=== PATIENT | female | born 2000 | race Two or more races ===

== ENCOUNTER 2021-04-28 23:35 | Emergency (ER) | payer MEDICAID ==
[~2021-04-28] VITALS: Ht 165.1 cm; Wt 87.0 kg
[2021-04-28 23:39] VITALS: BP 134/72
[2021-04-29] MEDS ORDERED: VISCOUS LIDOCAINE 2% 15 ML UDC PO STA (00:37)
[2021-04-29] MEDS ORDERED: ONDANSETRON 4MG ODT PO STA (00:37)
[2021-04-29] MEDS ORDERED: ACETAMINOPHEN 325MG TABLET PO STA (00:37)
[2021-04-29] MEDS ORDERED: MAGNESIUM/ALUMINUM HYDROXIDE/SIMETHICONE 30ML UDC PO STA (00:37)
[2021-04-29 00:56] LABS: BASOPHILS % 0.6 % (0.0-2.0); EOSINOPHILS % 1.9 % (0.0-5.0); HEMATOCRIT. 35.1 % (36.0-48.0); HEMOGLOBIN. 12.1 g/dL (12.0-16.0); LYMPHOCYTES % 14.5 % (20.0-50.0); MEAN CORPUSCULAR HEMOGLOBIN 28.7 pg (28.0-32.0); MEAN CORPUSCULAR VOLUME 83.5 fL (81.0-99.0); MEAN PLATELET VOLUME 8.9 fl (7.4-10.4); MONOCYTES % 6.2 % (2.0-8.0); NEUTROPHILS % 76.8 % (40.0-76.0); PLATELET 189 x1000/uL (130-400); RED CELL DISTRIBUTION WIDTH 13.3 % (11.6-14.6)
[2021-04-29 01:00] LABS: CHLORIDE 106 mEq/L (98-107)
[2021-04-29 01:04] LABS: PROTHROMBIN TIME 10.9 sec (9.6-11.0)
[2021-04-29 01:10] LABS: HCG SCREEN NEGATIVE
[2021-04-29 01:22] LABS: CLARITY URINE CLOUDY (CLEAR); COLOR URINE YELLOW (YELLOW); KETONES URINE 1+ (NEGATIVE); LEUKOCYTE ESTERASE URINE 1+ (NEGATIVE); NITRITE URINE POSITIVE (NEGATIVE); OCCULT BLOOD URINE NEGATIVE (NEGATIVE); PROTEIN URINE 1+ (NEGATIVE); SPECIFIC GRAVITY URINE 1.028 (1.005-1.030)
[2021-04-29] MEDS ORDERED: NITROFURANTOIN 100MG M/M CAPSULE PO ONE (01:45)
[2021-04-29] MEDS ORDERED: NITR-87 MT (01:48)
[2021-04-29] MEDS ORDERED: MAG355OR21 MT (01:48)
== END 2021-04-29 01:55 | disposition home or self-care (01) ==
LOC: ER 23:35
DX: K21.9 Gastro-esophageal reflux disease without esophagitis (principal); N39.0 Urinary tract infection, site not specified; Z88.0 Allergy status to penicillin; Z90.49 Acquired absence of other specified parts of digestive tract
CPT/HCPCS: 36415; 80053; 81003; 81025; 83690; 84703; 85025; 85610; 99284; Q0162